=== PATIENT | male | born 2000 | race African-American/Black ===

== ENCOUNTER 2025-02-07 19:36 | Emergency (ER) | payer OTHER, SELFPAY ==
[2025-02-07 22:31] LABS: Syphilis Antibody Index 13.60 S/CO (<1.00 Non-Reactive)
[2025-02-07 22:53] LABS: Syphilis Titer 1:1 Titer (Nonreactive)
[2025-02-07] MEDS ORDERED: Bicillin LA 2.4 MILL.UNITS/4 ML SYRINGE IM SCH (23:30)
== END 2025-02-07 22:12 | disposition home or self-care (01) ==
LOC: CSHERS 19:36
DX: L30.4 Erythema intertrigo (principal); Z11.3 Encounter for screening for infections with a predominantly sexual mode of transmission
CPT/HCPCS: 36415; 86593; 86780; 87255; 87491; 87591; 87661; 96372; 99283; J0561